=== PATIENT | male | born 1990 | race African-American/Black ===

== ENCOUNTER 2016-12-22 13:11 | Emergency (ER) | payer OTHER ==
--- NOTE | 2016-12-22 13:31 | ED Physician Chart ---
Chief Complaint/HPI - Patient Information Date Seen:: 12/22/16 Time Seen:: 13:30 Chief Complaint:: WALKING PNEUMONIA History of Present Illness:: THIS 26-YEAR-OLD MALE WAS BROUGHT TO THE EMERGENCY DEPARTMENT BY [facility] for evaluation and clearance to book. The patient states he has a history of recurrent episodes of pneumonia with the most recent episode six months ago at which time the patient was admitted to a [facility] facility. The patient denies any fever, chills, diaphoresis, cough or hemoptysis. He has mild pain in the left anterior chest which he experiences on a chronic basis. The patient denies any nausea, vomiting or shortness of breath. Allergies:: Allergies Allergy/AdvReac Type Severity Reaction Status Date / Time No Known Allergies Allergy Verified 12/22/16 13:25 Vitals:: Vital Signs - 8 hr 12/22/16 13:11 Temp 98.2 F HR 60 RR 16 BP 146/99 O2 Sat % 100 Review of Systems - Review of Systems General/Constitutional: No fever, No chills, No diaphoresis Skin: No skin lesions, No bruising Head: No headache, No light-headedness Eyes: No loss of vision, No diplopia ENT: No earache, No sore throat Neck: No neck pain, No stiffness, Mass noted Cardio Vascular: Chest pain ( Mild and recurrent with multiple prior episodes.) , No orthopnea, No edema Pulmonary: No SOB, No cough, No sputum, No wheezing GI: No nausea, No vomiting, No diarrhea, No pain, No melena G/U: No dysuria, No frequency, No hematuria Musculoskeletal: No bone or joint pain, No back pain, No muscle pain Endocrine: No polyuria, No polydipsia Psychiatric: No prior psych history Past Medical History - Past Medical History Past Medical History: No significant medical hx ( No prior history of heart disease, diabetes, hypertension or hyperlipidemia.) Social History: Non Smoker, No Alcohol, No Drug Use, Single, Homeless Surgical History: None Psychiatricy History: None Family Medical History - Family Member Mother Other Medical History: denies family medical hx Physical Exam - Physical Examination General/Constitutional: Awake ( I), Well-developed, well-nourished, Alert, No distress, Non-toxic appearing, Ambulatory Head: Atraumatic Eyes: Lids, conjuctiva normal, PERRL, EOMI Skin: Nl inspection, No rash, No skin lesions, No ecchymosis, No lymphadenopathy ENMT: External ears, nose nl, Nasal exam nl, Lips, teeth, gums nl, Oropharynx nl , Tonsils nl Neck: Full ROM w/o pain, No JVD, No nuchal rigidity, No mass, No stridor Respiratory: Nl effort/Exclusion, Clear to Auscultation, No Wheeze/Rhonchi/Rales Cardio Vascular: RRR, No murmur, gallop, rubs, NL S1 S2 Other Cardio Vascular comments:: GOOD PULSES IN ALL FOUR EXTREMITIES. GI: No tenderness/rebounding/guarding, No organomegaly, No hernia, Nondistended , No McBurney tenderness Other GI comments:: Rectal examination deferred at my discretion : No CVA tenderness Extremities: No tenderness or effusion, Full ROM, normal strength in all extremities, No edema, Normal digits & nails Neuro/Psych: Alert/oriented, Normal sensory exam, Normal motor strength, Judgement/insight normal, Mood normal, Normal gait, No focal deficits Misc: Normal back, No paraspinal tenderness Labs/Radiology/EKG Results - Radiology Results Results: SINGLE VIEW PA chest x-ray: heart of her limit of normal. No mediastinal whitening. No CHF. No areas of pulmonary consolidation or infiltrate. No pneumothorax. IMPRESSION: no cardiopulmonary abnormalities. Laboratory Tests 12/22/16 14:00 WBC 4.6 L RBC 4.49 Hgb 14.1 Hct 41.6 MCV 92.6 MCH 31.5 H MCHC Differential 34.0 RDW 11.1 L Plt Count 173 MPV 9.0 Neutrophils % 57.6 Lymphocytes % 34.3 Monocytes % 7.4 Eosinophils % 0.3 Basophils % 0.4 No leukocytosis. - EKG Interpretations EKG Time:: 13:54 Rate & Rhythm: sinus bradycardia at a rate of 53 [place]: NORMAL Intervals: the MN interval is normal. The QRS duration is normal. QT interval normal Comments:: J-point elevation in lead [address]2 no ST segment depression. Impression: No ischemic findings. Assessment - Assessment General Assessment: NO ACUTE MEDICAL FINDINGS AND MEDICALLY CLEAR TO BOOK. MILD ELEVATION OF BLOOD PRESSURE. PT ADVISED TO FOLLOW UP WITH A [facility] AFTER RELEASE FROM [facility]. ED Septic Shock - . Is Septic Shock (SBP<90, OR Lactate>4 mmol\L) present?: No - <6hrs of presentation: Vital Signs: Vital Signs - 8 hr 12/22/16 13:11 Temp 98.2 F HR 60 RR 16 BP 146/99 O2 Sat % 100 Reassessment (Disposition) - Reassessment Reassessment Condition:: Unchanged - Diagnosis Diagnosis:: HISTORY OF RECURRENT EPISODES PNEUMONIA. MILD HYPERTENSION IN THE ED. - Patient Disposition Discharge/Transfer:: Long Term/[facility] ED Discharge Plan - Patient Disposition Admit/Discharge/Transfer: Long Term/[facility] Condition at Disposition: Stable Forms: [facility] Clearance
[2016-12-22 14:03] LABS: % BASOPHILS 0.4 % (0.0-2.0); % EOSINOPHILS 0.3 % (0.0-5.0); % LYMPHOCYTES 34.3 % (20.0-50.0); % MONOCYTES 7.4 % (2.0-10.0); % NEUTROPHILS 57.6 % (40.0-80.0); HEMATOCRIT 41.6 % (39.0-49.0); HEMOGLOBIN 14.1 gm/dL (13.2-17.3); MEAN CELL VOLUME 92.6 fl (80-99); MEAN CORPUSCULAR HEMOGLOBIN 31.5 pg (26.0-30.0); NEUTROPHILE ABSOLUTE 2.7 Th/cmm (1.8-8.0); PLATELET COUNT 173 Th/cmm (150-400); RED BLOOD COUNT 4.49 Mil/cmm (4.30-5.70); RED CELL DISTRIBUTION WIDTH 11.1 % (11.5-20.0); WHITE BLOOD COUNT 4.6 Th/cmm (4.8-10.8)
--- NOTE | 2016-12-23 09:15 | Diagnostic Imaging Report ---
Portable chest x-ray History: Cough Allowing for portable technique the heart size is normal. No focal pulmonary parenchymal processes. No hilar or mediastinal abnormalities. Impression: No acute abnormalities.
== END 2016-12-22 14:27 | disposition still patient (30) ==
LOC: ER 13:11
DX: J18.8 Other pneumonia, unspecified organism (principal); I10 Essential (primary) hypertension
CPT/HCPCS: 36415-UA; 71010-TC; 85025-TC; 93005